=== PATIENT | male | born 1975 | race Caucasian/White ===

== ENCOUNTER 2024-07-27 08:05 | Inpatient (IN) ==
[2024-07-27] MEDS: KETOROLAC TROMETHAMINE 15 MG/ML VIAL IV STA (08:28)
--- NOTE | 2024-07-27 08:28 | Emergency Department Note ---
ED Provider Note History of Present Illness Chief Complaint: GI Assessment Stated Complaint: INTESTINAL BLOCKAGE Time Seen by Provider: 07/27/24 08:14 Source: patient Mode of arrival: ambulatory Limitations: no limitations This patient is a 49-year-old male who presents to the emergency department for evaluation of abdominal pain. Patient reports that he has been having some lower abdominal pain and constipation over the past 3 days. He states he has tried laxatives and stool softeners without relief. He reports the pain is across his lower abdomen. Nothing makes the pain better or worse. He has had some nausea this morning, denies vomiting. No fevers or urinary symptoms. Patient denies any history of similar symptoms. He states he is generally healthy. Home Medications Medication Instructions Recorded Confirmed Type multivitamin 1 tab PO QAM 04/06/22 11/01/23 History omeprazole 20 mg capsule,delayed 20 mg PO DAILY #90 caps 12/18/22 11/01/23 Rx release creatine monohydrate ea PO 11/29/23 11/29/23 History omega-3 fatty acids-fish oil 300 cap PO 11/29/23 11/29/23 History mg-500 mg capsule (Fish Oil) Allergies Allergy/AdvReac Type Severity Reaction Status Date / Time No Known Drug Allergies Allergy Verified 11/29/23 10:12 Past Med/Surg History Problem List (Updated 07/27/24 @ 15:33 by Margy Murrieta PA-C) Cecal volvulus (Acute) Colon cancer screening Medical History History of COVID-27 Feb 2021 > not hospitalized > mild Surgical History History of colonoscopy 05/02 History of tooth extraction S/P left knee surgery 2004 Family History Grandfather (Paternal) Myocardial infarction Diabetes Other No family history of adverse response to anesthesia No family history of bleeding disorder Denies family history of Ovarian cancer Prostate cancer Breast cancer Colorectal cancer Social History Smoking Status: Never smoker Second Hand Exposure: No; Do You Dip or Chew Tobacco: No; Hx Alcohol Use: No Hx Substance Use: No Preferred Language: Yi Communication Ability: Effective Visual Impairment: No Limitations Hearing Ability: Normal Marine Insulator Required: No Beliefs That Will Affect Care: None marital status: Current Living Situation: Spouse Current Living Situation Comment: /mother in law current occupational status: employed current occupation: restaurant operations manager How many Children do You have: 1 Feels Safe at Home: Yes Childhood Exposure to Second-Hand Smoke: Yes Diet: regular Diet Comment: does not consume pork or red meat caffeine: No during the past year weight has: remained stable Dental Care, Regularly: No Physical Activity Frequency: 1-2 Times per Week Seatbelt Use: always Sunscreen Use: Yes Assistive Devices: Glasses Physical Exam Vital Signs Vital Signs - 24 hr 07/27/24 08:11 07/27/24 09:16 07/27/24 09:29 Temperature 36.5 C Temperature Source Oral Pulse Rate 68 45 L Pulse Rate [Apical] 55 L Pulse Rhythm Regular Pulse Rhythm [Apical] Pulse Strength Normal Pulse Strength [Apical] Respiratory Rate 18 18 Respiratory Effort / Characteristics Non-Labored Respiratory Depth Normal Respiratory Pattern Regular Blood Pressure 134/84 Blood Pressure [Left Arm] 137/79 Blood Pressure Mean 100 Blood Pressure Mean [Left Arm] 98 Blood Pressure Position [Left Arm] Pulse Oximetry 99 100 Oxygen Delivery Method Room Air Oxygen Flow Rate Sepsis Recent Fever Within 48 Hours No Sepsis New/Unexplained Change in Mental Status No Sepsis Action Taken by Nursing No Action Required 07/27/24 11:00 07/27/24 13:22 07/27/24 13:30 Temperature 36.2 C L Temperature Source Temporal Artery Scan Pulse Rate Pulse Rate [Apical] 105 H 54 L Pulse Rhythm Pulse Rhythm [Apical] Regular Regular Pulse Strength Pulse Strength [Apical] Normal Normal Respiratory Rate 20 18 15 Respiratory Effort / Characteristics Non-Labored Non-Labored Spontaneous Non-Labored Spontaneous Respiratory Depth Normal Normal Normal Respiratory Pattern Regular Regular Regular Blood Pressure Blood Pressure [Left Arm] 157/88 H 107/61 146/84 H Blood Pressure Mean Blood Pressure Mean [Left Arm] 111 76 104 Blood Pressure Position [Left Arm] Lying Semi-fowlers Semi-fowlers Pulse Oximetry 99 95 100 Oxygen Delivery Method Room Air Oxymask Oxymask Oxygen Flow Rate 12 12 Sepsis Recent Fever Within 48 Hours Sepsis New/Unexplained Change in Mental Status Sepsis Action Taken by Nursing 07/27/24 13:40 07/27/24 13:50 07/27/24 14:00 Temperature 36.4 C L Temperature Source Oral Pulse Rate Pulse Rate [Apical] 48 L 48 L 42 L Pulse Rhythm Pulse Rhythm [Apical] Regular Regular Regular Pulse Strength Pulse Strength [Apical] Normal Normal Normal Respiratory Rate 13 14 12 Respiratory Effort / Characteristics Non-Labored Spontaneous Non-Labored Spontaneous Non-Labored Spontaneous Respiratory Depth Normal Normal Normal Respiratory Pattern Regular Regular Regular Blood Pressure Blood Pressure [Left Arm] 143/79 H 134/73 146/77 H Blood Pressure Mean Blood Pressure Mean [Left Arm] 100 93 100 Blood Pressure Position [Left Arm] Semi-fowlers Semi-fowlers Semi-fowlers Pulse Oximetry 100 96 97 Oxygen Delivery Method Oxymask Nasal Cannula Nasal Cannula Oxygen Flow Rate 8 3 2 Sepsis Recent Fever Within 48 Hours Sepsis New/Unexplained Change in Mental Status Sepsis Action Taken by Nursing 07/27/24 14:10 07/27/24 14:25 07/27/24 14:40 Temperature Temperature Source Pulse Rate Pulse Rate [Apical] 86 43 L 58 L Pulse Rhythm Pulse Rhythm [Apical] Regular Regular Regular Pulse Strength Pulse Strength [Apical] Normal Normal Normal Respiratory Rate 14 13 13 Respiratory Effort / Characteristics Non-Labored Spontaneous Non-Labored Spontaneous Non-Labored Spontaneous Respiratory Depth Normal Normal Normal Respiratory Pattern Regular Regular Regular Blood Pressure Blood Pressure [Left Arm] 142/76 H 131/71 150/76 H Blood Pressure Mean Blood Pressure Mean [Left Arm] 98 91 100 Blood Pressure Position [Left Arm] Semi-fowlers Semi-fowlers Semi-fowlers Pulse Oximetry 99 99 99 Oxygen Delivery Method Nasal Cannula Nasal Cannula Nasal Cannula Oxygen Flow Rate 2 2 2 Sepsis Recent Fever Within 48 Hours Sepsis New/Unexplained Change in Mental Status Sepsis Action Taken by Nursing 07/27/24 14:55 07/27/24 15:10 Temperature Temperature Source Pulse Rate Pulse Rate [Apical] 48 L 58 L Pulse Rhythm Pulse Rhythm [Apical] Regular Regular Pulse Strength Pulse Strength [Apical] Normal Normal Respiratory Rate 12 12 Respiratory Effort / Characteristics Non-Labored Spontaneous Non-Labored Spontaneous Respiratory Depth Normal Normal Respiratory Pattern Regular Regular Blood Pressure Blood Pressure [Left Arm] 147/71 H 124/85 Blood Pressure Mean Blood Pressure Mean [Left Arm] 96 98 Blood Pressure Position [Left Arm] Semi-fowlers Semi-fowlers Pulse Oximetry 98 99 Oxygen Delivery Method Nasal Cannula Nasal Cannula Oxygen Flow Rate 2 2 Sepsis Recent Fever Within 48 Hours Sepsis New/Unexplained Change in Mental Status Sepsis Action Taken by Nursing VITALS: Vitals are noted on the nurse's note and reviewed by myself. GENERAL: This is a 49-year-old male, in no acute distress, well-developed well- nourished. SKIN: The skin was without rashes. EYES: Pupils equal round and reactive to light and accommodation. No scleral icterus. MOUTH: Mucous membranes moist. HEART: Regular rate and rhythm without murmurs gallops or rubs. LUNGS: Clear to auscultation bilaterally without wheezes, rales or rhonchi. ABDOMEN: Positive bowel sounds x 4. Soft, tenderness across lower abdomen. No guarding or rebound tenderness. NEURO: Patient was alert and oriented to person place and time. Course Administered Medications Discontinued Medications Fentanyl Citrate (Fentanyl Citrate Pf 100 Mcg/2 Ml Vial) 25 mcg IV Q5M PRN PRN Reason: PACU Use Only-Pain Stop: 07/27/24 19:38 Last Admin: 07/27/24 14:45 Dose: 25 mcg Documented By: Admin: 07/27/24 14:40 Dose: 25 mcg Documented By: Admin: 07/27/24 13:50 Dose: 25 mcg Documented By: Admin: 07/27/24 13:45 Dose: 25 mcg Documented By: SED Sodium Chloride (Nss) 1,000 mls @ 999 mls/hr IV .Q1H1M ONE Stop: 07/27/24 10:59 Last Infusion: 07/27/24 11:20 Dose: Infused Documented By: Admin: 07/27/24 10:06 Dose: 999 mls/hr Documented By: CHASITY Cefoxitin Sodium 2,000 mg/ (Dextrose) 50 mls @ 100 mls/hr IV ONCE ONE; Protocol Stop: 07/27/24 14:55 Last Admin: 07/27/24 12:53 Dose: 100 mls/hr Documented By: REINALDO Ioversol (Optiray 320 100ml) 94 ml IV ONCE ONE Stop: 07/27/24 09:34 Last Admin: 07/27/24 09:33 Dose: 94 ml Documented By: PARTH Ketorolac Tromethamine (Ketorolac Tromethamine 15 Mg/Ml Vial) 15 mg IV NOW STA Stop: 07/27/24 08:18 Last Admin: 07/27/24 08:28 Dose: 15 mg Documented By: ALDO Morphine Sulfate (Morphine Sulfate 4 Mg/Ml 1 Ml Carp\Vial) 4 mg IV NOW STA Stop: 07/27/24 10:00 Last Admin: 07/27/24 10:06 Dose: 4 mg Documented By: CHASITY Ondansetron HCl (Ondansetron Inj 2 Mg/Ml 2 Ml Vial) 4 mg IV NOW STA Stop: 07/27/24 10:00 Last Admin: 07/27/24 10:06 Dose: 4 mg Documented By: CHASITY Medical Decision Making Differential Diagnosis Appendicitis, testicular torsion, infections, diverticulitis, UTI, obstruction, mesenteric ischemia, aortic pathology, inflammatory bowel disease, renal colic, PUD, pancreatitis, biliary pathology, hernia, volvulus, constipation, as well as other pathologies. Laboratory Data Attestation: I reviewed the patient's lab results. 07/27/24 08:31 07/27/24 08:31 Lab Results 07/27/24 07/27/24 Range/Units 08:31 10:21 WBC 5.31 (4.8-10.8) K/ul RBC 4.60 L (4.70-6.10) M/uL Hgb 14.4 (14.0-18.0) g/dl Hct 43.1 (42.0-52.0) % MCV 93.7 (80.0-100.0) fL MCH 31.3 (25.0-34.0) pg MCHC 33.4 (32.0-36.0) g/dL RDW Std Deviation 44.6 (36.4-46.3) fL RDW Coeff of Sandie 12.9 (11.5-14.5) % Plt Count 203 (130-400) K/uL MPV 10.5 (9.4-12.4) fL Immature Gran % (Auto) 0.4 % Neut % (Auto) 55.0 % Lymph % (Auto) 36.0 % [place] % (Auto) 7.3 % Eos % (Auto) 1.1 % Baso % (Auto) 0.2 % Neut # (Auto) 2.92 (1.40-6.50) K/uL Lymph # (Auto) 1.91 (1.20-3.40) K/uL [place] # (Auto) 0.39 (0.11-0.59) K/uL Eos # (Auto) 0.06 (0.00-0.50) K/uL Baso # (Auto) 0.01 (0.00-0.20) K/uL Immature Gran # (Auto) 0.02 (0.01-0.20) K/uL Sodium 138 (136-145) mmol/L Potassium 4.3 (3.5-5.1) mmol/L Chloride 104 (98-107) mmol/L Carbon Dioxide 28 (21-32) mmol/L Anion Gap 6 (3-11) BUN 19 (6-23) mg/dl Creatinine 1.51 H (0.6-1.4) mg/dl Est Cr Clr Drug Dosing 64.2 ml/min eGFR 55.92 BUN/Creatinine Ratio 12.6 (10-20) Glucose 109 H (70-99(Fasting)) mg/dl Lactate 0.7 (0.4-2.0) mmol/L Calcium 10.4 H (8.6-10.3) mg/dl Total Bilirubin 1.0 (0.2-1.0) mg/dl AST 19 (13-39) U/L ALT 14 (7-52) U/L Alkaline Phosphatase 54 (34-104) U/L Total Protein 7.6 (6.0-8.3) gm/dl Albumin 4.3 (3.4-5.0) gm/dl Globulin 3.3 (2.5-4.0) gm/dl Albumin/Globulin Ratio 1.3 (0.9-2) Lipase 23 (11-82) U/L Imaging Data Attestation: I personally reviewed and interpreted this imaging study as follows: Radiologist's Impression: Abdomen/Pelvis CT 07/27/24 08:17 CT OF THE ABDOMEN AND PELVIS WITH CONTRAST CLINICAL HISTORY: Lower abdominal pain and constipation. COMPARISON STUDY: None. TECHNIQUE: Following IV administration of 94 mL of Optiray, axial images of the abdomen and pelvis were obtained from the lung bases to the proximal femurs. Images were reviewed in the axial, sagittal, and coronal planes. IV contrast was administered without complication. Automated exposure control was utilized for the study. A dose lowering technique was utilized adhering to the principles of ALARA. CT DOSE: 827.08 mGy.cm FINDINGS: Lung bases are unremarkable. There is no pneumatosis, free air or portal venous gas. A subcentimeter hypodense right hepatic lobe lesion is suggestive of a cyst. There is no biliary or pancreatic ductal dilatation. Spleen, adrenal glands, kidneys and pancreas are normal. There is no hydronephrosis. The cecum is located within the central abdomen. There is moderate to marked cecal distention. There is a large amount stool within the cecum. Mild swirling of the mesentery is noted. There is mild stranding within the mesentery. No bowel wall thickening is identified. There are no fluid collections. Major vasculature is patent. There is no lymphadenopathy. The appendix is normal. IMPRESSION: Findings suggestive of cecal volvulus. Abnormally positioned cecum with moderate to marked cecal distention. Large amount stool within the cecum. Mild swirling of the mesentery with mild mesenteric stranding. Surgical consultation is recommended. ACT 112: Negative or not required by law. Electronically signed by: Win Estrada M.D. 07/27/2024 9:50 AM MDM Narrative Continuous school bus monitor: Order was placed for continuous school bus monitor. Patient was placed on the school bus monitor. Patient was noted to be in sinus bradycardia at an initial rate of 50 bpm. This patient is a 49-year-old male who presents to the emergency department for evaluation of lower abdominal pain and constipation over the past 3 days. Labs with no leukocytosis, lactate was not elevated. No concerning electrolyte abnormalities. Mild BREANN noted, possibly secondary to dehydration as patient has not been eating or drinking much. CT performed and does show evidence of cecal volvulus with marked cecal distention. Case discussed with the general surgeon who will take the patient for operative management. He was treated with IV pain medications, Zofran and fluids in the emergency department. Impression Cecal volvulus Discharge Plan Visit Data Chief Complaint: GI Assessment Stated Complaint: INTESTINAL BLOCKAGE ED Provider: Abhi James ED Midlevel Provider: Margy Murrieta Discharge Problem: Cecal volvulus Discharge Instructions Interventions: ED Discharge Assessment Last Done: 07/27/24 11:24 Forms Stand Alone Forms: My [facility] [employer] Prescriptions Prescriptions: No Action omeprazole 20 mg capsule,delayed release(DR/EC) 20 mg PO DAILY Qty: 90 2RF Rx Instructions: 1 cap po 30min prior to first meal Fish Oil 300-500 mg capsule PO creatine monohydrate Powder PO multivitamin Tablet 1 tab PO QAM Referrals Referrals: Dennis Nuñez, DO [Primary Care Provider] -
[2024-07-27 08:55] LABS: Basophils # (auto) 0.01 K/uL (0.00-0.20); Basophils % (auto) 0.2 %; Eosinophils # (auto) 0.06 K/uL (0.00-0.50); Eosinophils % (auto) 1.1 %; Hematocrit (blood only) 43.1 % (42.0-52.0); Hemoglobin 14.4 g/dl (14.0-18.0); Immature Granulocytes # (auto) 0.02 K/uL (0.01-0.20); Immature Granulocytes % (auto) 0.4 %; Lymphocytes # (auto) 1.91 K/uL (1.20-3.40); Mean Corpuscular Hemoglobin 31.3 pg (25.0-34.0); Mean Corpuscular Hgb Conc 33.4 g/dL (32.0-36.0); Mean Corpuscular Volume 93.7 fL (80.0-100.0); Mean Platelet Volume 10.5 fL (9.4-12.4); Monocytes # (auto) 0.39 K/uL (0.11-0.59); Monocytes % (auto) 7.3 %; Neutrophils # (auto) 2.92 K/uL (1.40-6.50); Platelet Count 203 K/uL (130-400); RDW Coefficient of Variation 12.9 % (11.5-14.5); RDW Standard Deviation 44.6 fL (36.4-46.3); White Blood Count 5.31 K/ul (4.8-10.8)
[2024-07-27 09:17] LABS: Albumin Globulin Ratio 1.3 (0.9-2); Albumin Level 4.3 gm/dl (3.4-5.0); BUN Creatinine Ratio 12.6 (10-20); Calcium 10.4 mg/dl (8.6-10.3); Creatinine Clr Calc Pharmacy 64.2 ml/min; Globulin 3.3 gm/dl (2.5-4.0); Potassium 4.3 mmol/L (3.5-5.1); Total Protein 7.6 gm/dl (6.0-8.3)
[2024-07-27] MEDS: OPTIRAY 320 100ml IV ONE (09:33)
--- NOTE | 2024-07-27 09:52 | CT Scan Report ---
CT OF THE ABDOMEN AND PELVIS WITH CONTRAST CLINICAL HISTORY: Lower abdominal pain and constipation. COMPARISON STUDY: None. TECHNIQUE: Following IV administration of 94 mL of Optiray, axial images of the abdomen and pelvis we re obtained from the lung bases to the proximal femurs. Images were reviewed in the axial, sagittal, and coronal planes. IV contrast was administered without complication. Automated exposure control wa s utilized for the study. A dose lowering technique was utilized adhering to the principles of ALARA . CT DOSE: 827.08 mGy.cm FINDINGS: Lung bases are unremarkable. There is no pneumatosis, free air or portal venous gas. A subc entimeter hypodense right hepatic lobe lesion is suggestive of a cyst. There is no biliary or pancrea tic ductal dilatation. Spleen, adrenal glands, kidneys and pancreas are normal. There is no hydroneph rosis. The cecum is located within the central abdomen. There is moderate to marked cecal distention. There is a large amount stool within the cecum. Mild swirling of the mesentery is noted. There is mi ld stranding within the mesentery. No bowel wall thickening is identified. There are no fluid collect ions. Major vasculature is patent. There is no lymphadenopathy. The appendix is normal. IMPRESSION: Findings suggestive of cecal volvulus. Abnormally positioned cecum with moderate to samira ed cecal distention. Large amount stool within the cecum. Mild swirling of the mesentery with mild me senteric stranding. Surgical consultation is recommended. ACT 112: Negative or not required by law. Electronically signed by: Win Estrada M.D. 07/27/2024 9:50 AM
[2024-07-27] MEDS: MoRPHine SULFATE 4 MG/ML 1 ML CARP\\VIAL IV STA (10:06)
[2024-07-27] MEDS: SODIUM CHLORIDE 0.9% 1,000 ML IV ONE (10:06)
[2024-07-27] MEDS: ONDANSETRON INJ 2 MG/ML 2 ML VIAL IV STA (10:06)
--- NOTE | 2024-07-27 10:31 | Anesthesiology Consultation ---
Date of Service July 27, 2024 Assessment & Plan Chart Review Chart Review: Acceptable Risk for Surgery and Patient NOT seen in Pre Admission Testing Consults Requested none ASA [id number] Proposed Anesthesia Anesthesia Type: General History Surgery Operation Date: 07/27/24 11:00 Proposed Procedures p Exploratory Laparotomy, Possible Bowel Resection - Irving Nuñez MD Height/Weight Height: 6 ft Weight: 88.7 kg Allergies Allergy/AdvReac Type Severity Reaction Status Date / Time No Known Drug Allergies Allergy Verified 11/29/23 10:12 Medications Home Medications Medication Instructions Recorded Confirmed Last Taken multivitamin 1 tab PO QAM 04/06/22 11/01/23 04/09/22 omeprazole 20 mg capsule,delayed 20 mg PO DAILY #90 caps 12/18/22 11/01/23 Unknown release creatine monohydrate ea PO 11/29/23 11/29/23 Unknown omega-3 fatty acids-fish oil 300 cap PO 11/29/23 11/29/23 Unknown mg-500 mg capsule (Fish Oil) Active Medications Generic Name Dose Route Start Last Admin Trade Name Freq PRN Reason Stop Dose Admin Sodium Chloride 1,000 mls @ 999 mls/hr 07/27/24 09:59 07/27/24 10:06 Nss IV 07/27/24 10:59 999 mls/hr .Q1H1M ONE Administration Past Medical History Medical History History of COVID-27 Feb 2021 > not hospitalized > mild GERD Exercise / Class Metabolic Activity II 4-5 Yardwork/Stairs/Walk up hill Past Family History Family History Grandfather (Paternal) Myocardial infarction Diabetes Other No family history of adverse response to anesthesia No family history of bleeding disorder Denies family history of Ovarian cancer Prostate cancer Breast cancer Colorectal cancer Past Surgical History Surgical History History of colonoscopy 05/02 History of tooth extraction S/P left knee surgery 2004 Past Anesthesia History No Hx of Anesthesia Complications and No Family Hx of Anesthesia Complications History of PONV No Hx of PONV and No Hx of Motion Sickness Social History Smoking Status: Never smoker Do You Dip or Chew Tobacco: No Hx Alcohol Use: No Hx Substance Use: No substance use type: does not use Physical Exam Vital Signs Last Vital Signs Temp 36.5 C 07/27/24 08:11 Pulse 45 L 07/27/24 09:29 Resp 18 07/27/24 09:16 BP 137/79 07/27/24 09:16 Pulse Ox 100 07/27/24 09:16 O2 Del Method Room Air 07/27/24 08:11 Testing Laboratory Results 07/27/24 08:31 07/27/24 08:31
[2024-07-27] MEDS ORDERED: LIDOCAINE 2% 2 ML VIAL/AMP(20MG/ML) INFIL ONE (10:54)
[2024-07-27] MEDS ORDERED: ONDANSETRON INJ 2 MG/ML 2 ML VIAL ONE (10:54)
[2024-07-27] MEDS ORDERED: PROPOFOL IV EMULSION 10 MG/ML 20 ML VIAL IV ONE (10:54)
[2024-07-27] MEDS ORDERED: DEXAMETHASONE SOD INJ 4 MG/ML VIAL ONE (10:54)
[2024-07-27] MEDS ORDERED: SUCCINYLCHOLINE CHLORIDE 20 MG/ML 10 ML VIAL IV ONE (10:55)
[2024-07-27] MEDS ORDERED: ROCURONIUM BROMIDE 10 MG/ML 5 ML VIAL IV ONE (10:55)
[2024-07-27] MEDS ORDERED: MIDAZOLAM HCL 1 MG/ML 2ML VIAL ONE (10:55)
[2024-07-27] MEDS ORDERED: fentaNYL citrate PF 100 MCG/2 ML VIAL ONE (10:55)
--- NOTE | 2024-07-27 11:15 | History & Physical Report ---
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 We discussed the risks and benefits of exploratory laparotomy with reduction of the volvulus and right colon resection reanastomosis. All his questions were answered and he is agreeable to proceed. Consent has been obtained. Will schedule this at the earliest convenience. History of Present Illness Primary Care Provider: Dennis Nuñez DO 49-year-old gentleman presents with a 3-day history of severe pain in his abdomen. He has been constipated. He denies fevers and chills. He has had some nausea. He denies other complaints. He has never had surgery in the past on his abdomen. CT scan demonstrates cecal volvulus. Allergies Allergy/AdvReac Type Severity Reaction Status Date / Time No Known Drug Allergies Allergy Verified 11/29/23 10:12 Home Medications Medication Instructions Recorded Confirmed Type multivitamin 1 tab PO QAM 04/06/22 11/01/23 History omeprazole 20 mg capsule,delayed 20 mg PO DAILY #90 caps 12/18/22 11/01/23 Rx release creatine monohydrate ea PO 11/29/23 11/29/23 History omega-3 fatty acids-fish oil 300 cap PO 11/29/23 11/29/23 History mg-500 mg capsule (Fish Oil) Past Med/Surg History Problem List (Updated 07/27/24 @ 11:16 by Irving Nuñez MD) Cecal volvulus Colon cancer screening Medical History History of COVID-19 Feb 2021 > not hospitalized > mild Surgical History History of colonoscopy 05/02 History of tooth extraction S/P left knee surgery 2004 Family History Grandfather (Paternal) Myocardial infarction Diabetes Other No family history of adverse response to anesthesia No family history of bleeding disorder Denies family history of Ovarian cancer Prostate cancer Breast cancer Colorectal cancer Social History Smoking Status: Never smoker Second Hand Exposure: No; Do You Dip or Chew Tobacco: No; Hx Alcohol Use: No Hx Substance Use: No Preferred Language: [place] Islander Communication Ability: Effective Visual Impairment: No Limitations Hearing Ability: Normal Floral Manager Required: No Beliefs That Will Affect Care: None marital status: Current Living Situation: Spouse Current Living Situation Comment: /mother in law current occupational status: employed current occupation: credit operations processor How many Children do You have: 1 Feels Safe at Home: Yes Childhood Exposure to Second-Hand Smoke: Yes Diet: regular Diet Comment: does not consume pork or red meat caffeine: No during the past year weight has: remained stable Dental Care, Regularly: No Physical Activity Frequency: 1-2 Times per Week Seatbelt Use: always Sunscreen Use: Yes Assistive Devices: Glasses Review of Systems Review of Systems: All systems reviewed & are unremarkable except as noted in HPI & below Physical Exam Constitutional: WD/WN, vitals as above Eyes: PERRL, conjunctivae normal, anicteric sclerae Neck: trachea midline, no thyromegaly Respiratory: normal respiratory effort; no respiratory distress and no labored breathing Cardiovascular: Rate/Rhythm: regular rate and regular rhythm Gastrointestinal (Abdomen): Inspection/Auscultation: abdomen normal to inspection and + abdomen distended Percussion/Palpation: + abdomen tender ( Diffusely) and abdomen soft; no guarding and abdomen not rigid Skin: no rashes, warm and dry Psychiatric: A+Ox3, euthymic affect Results & Data Results & Data Vital Signs (Past 12 Hours) Vital Signs Temp Pulse Pulse Resp BP BP Pulse Ox 07/27/24 09:29 45 L 07/27/24 09:16 55 L 18 137/79 100 07/27/24 08:11 36.5 C 68 18 134/84 99 O2 Del Method 07/27/24 09:29 07/27/24 09:16 07/27/24 08:11 Room Air Laboratory Results 07/27/24 07/27/24 Range/Units 10:21 08:31 WBC 5.31 (4.8-10.8) K/ul RBC 4.60 L (4.70-6.10) M/uL Hgb 14.4 (14.0-18.0) g/dl Hct 43.1 (42.0-52.0) % MCV 93.7 (80.0-100.0) fL MCH 31.3 (25.0-34.0) pg MCHC 33.4 (32.0-36.0) g/dL RDW Std Deviation 44.6 (36.4-46.3) fL RDW Coeff of Sandie 12.9 (11.5-14.5) % Plt Count 203 (130-400) K/uL MPV 10.5 (9.4-12.4) fL Immature Gran % (Auto) 0.4 % Neut % (Auto) 55.0 % Lymph % (Auto) 36.0 % [place] % (Auto) 7.3 % Eos % (Auto) 1.1 % Baso % (Auto) 0.2 % Neut # (Auto) 2.92 (1.40-6.50) K/uL Lymph # (Auto) 1.91 (1.20-3.40) K/uL [place] # (Auto) 0.39 (0.11-0.59) K/uL Eos # (Auto) 0.06 (0.00-0.50) K/uL Baso # (Auto) 0.01 (0.00-0.20) K/uL Immature Gran # (Auto) 0.02 (0.01-0.20) K/uL Sodium 138 (136-145) mmol/L Potassium 4.3 (3.5-5.1) mmol/L Chloride 104 (98-107) mmol/L Carbon Dioxide 28 (21-32) mmol/L Anion Gap 6 (3-11) BUN 19 (6-23) mg/dl Creatinine 1.51 H (0.6-1.4) mg/dl Est Cr Clr Drug Dosing 64.2 ml/min eGFR 55.92 BUN/Creatinine Ratio 12.6 (10-20) Glucose 109 H (70-99(Fasting)) mg/dl Lactate 0.7 (0.4-2.0) mmol/L Calcium 10.4 H (8.6-10.3) mg/dl Total Bilirubin 1.0 (0.2-1.0) mg/dl AST 19 (13-39) U/L ALT 14 (7-52) U/L Alkaline Phosphatase 54 (34-104) U/L Total Protein 7.6 (6.0-8.3) gm/dl Albumin 4.3 (3.4-5.0) gm/dl Globulin 3.3 (2.5-4.0) gm/dl Albumin/Globulin Ratio 1.3 (0.9-2) Lipase 23 (11-82) U/L Diagnostic Findings CT OF THE ABDOMEN AND PELVIS WITH CONTRAST CLINICAL HISTORY: Lower abdominal pain and constipation. COMPARISON STUDY: None. TECHNIQUE: Following IV administration of 94 mL of Optiray, axial images of the abdomen and pelvis were obtained from the lung bases to the proximal femurs. Images were reviewed in the axial, sagittal, and coronal planes. IV contrast was administered without complication. Automated exposure control was utilized for the study. A dose lowering technique was utilized adhering to the principles of ALARA. CT DOSE: 827.08 mGy.cm FINDINGS: Lung bases are unremarkable. There is no pneumatosis, free air or portal venous gas. A subcentimeter hypodense right hepatic lobe lesion is santana ggestive of a cyst. There is no biliary or pancreatic ductal dilatation. Spleen, adrenal glands, kidneys and pancreas are normal. There is no hydronephrosis. The cecum is located within the central abdomen. There is moderate to marked cecal distention. There is a large amount stool within the cecum. Mild swirling of the mesentery is noted. There is mild stranding within the mesentery. No bowel wall thickening is identified. There are no fluid collections. Major vasculature is patent. There is no lymphadenopathy. The appendix is normal. IMPRESSION: Findings suggestive of cecal volvulus. Abnormally positioned cecum with moderate to marked cecal distention. Large amount stool within the cecum. Mild swirling of the mesentery with mild mesenteric stranding. Surgical consultation is recommended. ACT 112: Negative or not required by law. Electronically signed by: Win Estrada M.D. 07/27/2024 9:50 AM
[2024-07-27] MEDS ORDERED: NALOXONE HCL 0.4 MG/1 ML VIAL/CARP IV PRN (11:38)
[2024-07-27] MEDS ORDERED: ePHEDrine sulfate 50 MG/ML AMP IV PRN (11:38)
[2024-07-27] MEDS ORDERED: ATROPINE SULFATE 0.1 MG/ML 10ML SYR IV PRN (11:38)
[2024-07-27] MEDS ORDERED: HYDROmorphone INJ 1 MG/ML SYRINGE IV PRN (11:38)
[2024-07-27] MEDS ORDERED: ONDANSETRON INJ 2 MG/ML 2 ML VIAL IV PRN (11:38)
[2024-07-27] MEDS ORDERED: PROMETHAZINE HCL 6.25 MG in SODIUM CHLORIDE 0.9% 50 ML IV PRN (11:38)
[2024-07-27] MEDS ORDERED: FLUMAZENIL 0.1 MG/1 ML 10 ML VIAL IV PRN (11:38)
[2024-07-27] MEDS ORDERED: cefOXitin SOD 1,000 MG VIAL ONE (11:54)
[2024-07-27] MEDS ORDERED: HYDROmorphone INJ 1 MG/ML SYRINGE ONE ×2 (12:07→12:17)
[2024-07-27] MEDS: cefOXitin 2,000 MG in DEXTROSE 5 % MINI-B 50 ML IV ONE (12:53)
[2024-07-27] MEDS ORDERED: SUGAMMADEX SODIUM 200 MG/2 ML VIAL IV ONE (12:53)
--- NOTE | 2024-07-27 13:12 | Post Operative Brief Note ---
Immediate Post Op Note Date of Surgery July 27, 2024 Pre & Post Diagnosis Operation Date: 07/27/24 11:00 Preop: Cecal volvulus Postop: Same I identified the patient and participated in the time-out.: Yes Procedure Operation Date: 07/27/24 11:00 exploratory laparotomy right hemicolectomy Surgeon Irving Nuñez MD [place] none Estimated Blood Loss 10 Findings Consistent with Post-Op Diagnosis cecal volvulus with extremely distended right colon up past the hepatic flexure Drains Verde Catheter
--- NOTE | 2024-07-27 13:16 | Operative Report ---
Post Operative Report Pre & Post Diagnosis Operation Date: 07/27/24 11:00 Pre-Op diagnosis: Cecal volvulus Postop: Same I identified the patient and participated in the time-out.: Yes Procedure Operation Date: 07/27/24 11:00 exploratory laparotomy, right hemicolectomy, reanastomosis Surgeon Irving Nuñez MD Contracts Administrator none Estimated Blood Loss 10 Findings Consistent with Post-Op Diagnosis the right colon was volvulized, twisted on itself 2 times. No perforation. No ischemia but the right colon was severely distended and on a very long thin mesentery Specimens right colon including terminal ileum and appendix/cecum Drains none Anesthesia Type General Complications none Description of Procedure patient was taken to the operating room, placed supine on the operating table. Timeouts performed, perioperative antibiotics were administered, SCD boots were placed. After adequate anesthesia and analgesia was obtained, the area was prepped and draped in the normal sterile fashion. A Verde catheter was placed prior to prepping and draping the patient. A midline incision was made with a 10 blade scalpel and carried into the subcutaneous tissue. The abdomen was entered through the umbilicus, and the incision was opened to its fullest extent with electrocautery. We began to explore the abdominal cavity. The colon appeared severely distended but was tethered down near the midline. I extended the incision slightly, and was able to detorsed the volvulus. It had volvulized and rotated at least twice on itself causing a tight obstruction. The right colon was incredibly distended and dilated but was not ischemic. There is no perforation. The right colon was on a very thin long mesentery which predisposed it to twist. I mobilized the right colon up past the hepatic flexure to just prior to the middle colic artery. A site was selected on the terminal ileum and the bowel was transected in this location with a LYUDMILA stapler. The mesentery of the right colon was then taken down with the LigaSure device. The ileocolic and right colic arteries were clamped and tied with 3-0 silk suture. The colon was then transected in the mid proximal transverse colon with the LYUDMILA stapler. The specimen was sent off the field for specimen. A [id number], functional end-to-end anastomosis between the terminal ileum and the transverse colon was then created using the LYUDMILA stapler. The common channel was closed with a TA stapler. The resulting mesenteric defect was reapproximated with 2 oh-0 Vicryl suture. Attention was turned to hemostasis at this point which was excellent. The wound was copiously irrigated and suctioned free. Gloves were changed at this juncture. The bowel was then placed back into the abdominal cavity. The fascia was closed with a running #1 PDS. The skin was closed with surgical clips. Dressings were applied. He tolerated the procedure without complication was transferred in stable condition to the PACU. All instrument, needle, and sponge counts were correct at the end of the case. I attest to the content of the Intraoperative Record and any orders documented therein. Any exceptions are noted below.
[2024-07-27] MEDS: fentaNYL citrate PF 100 MCG/2 ML VIAL IV PRN (13:45)
--- NOTE | 2024-07-27 14:28 | Anesthesiology Progress Note ---
Date of Service July 27, 2024 Anesthesia Post Procedure Vital Signs Vital Signs: Temp Pulse Pulse Resp BP BP Pulse Ox 07/27/24 14:10 86 14 142/76 H 99 07/27/24 14:00 36.4 C L 42 L 12 146/77 H 97 07/27/24 13:50 48 L 14 134/73 96 07/27/24 13:40 48 L 13 143/79 H 100 07/27/24 13:30 54 L 15 146/84 H 100 07/27/24 13:22 36.2 C L 105 H 18 107/61 95 07/27/24 11:00 20 157/88 H 99 07/27/24 09:29 45 L 07/27/24 09:16 55 L 18 137/79 100 07/27/24 08:11 36.5 C 68 18 134/84 99 O2 Del Method O2 Flow Rate 07/27/24 14:10 Nasal Cannula 2 07/27/24 14:00 Nasal Cannula 2 07/27/24 13:50 Nasal Cannula 3 07/27/24 13:40 Oxymask 8 07/27/24 13:30 Oxymask 12 07/27/24 13:22 Oxymask 12 07/27/24 11:00 Room Air 07/27/24 09:29 07/27/24 09:16 07/27/24 08:11 Room Air Pain Intensity Lower Abdomen: Pain Intensity: 7 Abdomen: Pain Intensity: 4 Transfer of Care Handoff Completed per policy Notes Mental Status: alert / awake / arousable Patient Amnestic to Procedure: Yes Nausea / Vomiting: adequately controlled Pain: adequately controlled Airway Patency, RR, SpO2: stable & adequate BP & HR: stable & adequate Hydration State: stable & adequate Anesthetic Complications: no major complications apparent
[2024-07-27] MEDS ORDERED: diphenhydrAMINE Capsule 25 MG CAP PO PRN (15:38)
[2024-07-27] MEDS ORDERED: oxyCODONE/ACETAMINOPHEN 5mg/325mg TAB PO PRN ×2 (15:38)
[2024-07-27] MEDS ORDERED: PROMETHAZINE 12.5 MG/50.5 ML BAG IV PRN (15:38)
[2024-07-27] MEDS: KETOROLAC 30 MG/ML VIAL IV PRN (20:44)
[2024-07-28] MEDS: MoRPHine SULFATE 2 MG/ML CARP IV PRN (03:02)
[2024-07-28] MEDS: ONDANSETRON INJ 2 MG/ML 2 ML VIAL IV PRN (03:04)
[2024-07-28 06:35] LABS: Basophils # (auto) 0.02 K/uL (0.00-0.20); Basophils % (auto) 0.2 %; Eosinophils # (auto) 0.01 K/uL (0.00-0.50); Eosinophils % (auto) 0.1 %; Hematocrit (blood only) 39.1 % (42.0-52.0); Hemoglobin 13.2 g/dl (14.0-18.0); Immature Granulocytes # (auto) 0.04 K/uL (0.01-0.20); Immature Granulocytes % (auto) 0.4 %; Lymphocytes # (auto) 1.54 K/uL (1.20-3.40); Lymphocytes % (auto) 14.7 %; Mean Corpuscular Hemoglobin 30.9 pg (25.0-34.0); Mean Corpuscular Hgb Conc 33.8 g/dL (32.0-36.0); Mean Corpuscular Volume 91.6 fL (80.0-100.0); Mean Platelet Volume 10.9 fL (9.4-12.4); Monocytes # (auto) 0.78 K/uL (0.11-0.59); Monocytes % (auto) 7.4 %; Neutrophils # (auto) 8.11 K/uL (1.40-6.50); Neutrophils % (auto) 77.2 %; Platelet Count 185 K/uL (130-400); RDW Standard Deviation 43.7 fL (36.4-46.3); Red Blood Count 4.27 M/uL (4.70-6.10)
[2024-07-28 07:00] LABS: BUN Creatinine Ratio 11.3 (10-20); Calcium 9.6 mg/dl (8.6-10.3); Creatinine Clr Calc Pharmacy 64.7 ml/min
[2024-07-28] MEDS ORDERED: HYDROmorphone INJ 1 MG/ML SYRINGE IV PRN (09:10)
[2024-07-28] MEDS: HYDROmorphone INJ 0.5 MG/0.5 ML SYR IV PRN (09:19)
[2024-07-28] MEDS: ENOXAPARIN INJ 40 MG/0.4 ML SYR SQ SCH (09:29)
[2024-07-28] MEDS: KETOROLAC 30 MG/ML VIAL IV SCH (10:00)
--- NOTE | 2024-07-28 11:29 | Surgery Progress Note ---
Date of Service July 28, 2024 Assessment & Plan (1) Cecal volvulus: Plan POD # 1 s/p ex lap right hemicolectomy with primary anastomosis avss postop pain moderate, somewhat controlled + flatus no n,v creatinine 1.5 (stable) Plan: Continue clear liquids IV NSS at 80 cc/hr Continue pain management: Changed IV morphine prn to Dilaudid prn, will schedule Toradol , advised can try Percocet as well Continue antiemetics as needed encouraged incentive spirometry and ambulation Lovenox and SCDs repeat am labs, monitor creatinine abdominal binder with ambulation Dr. Nuñez has seen and examined pt, agrees with above. Admission and Anticipated Discharge Date Admission Date: July 27, 2024 Subjective feeling okay midline incisional pain 510, 710 last night, morphine not really helping urinating without difficulty some gas and liquid stool this am no chest pain, shortness of breath no n,v tolerating some clear liquids Physical Exam Constitutional: WD/WN, vitals as above cooperative and comfortable; no acute distress and not ill appearing Respiratory: normal respiratory effort, lungs clear to auscultation Cardiovascular: RRR, no murmur, no edema Gastrointestinal (Abdomen): Inspection/Auscultation: abdomen normal to inspection and + abdominal surgical incision (dressing c/d/i ); abdomen not distended Percussion/Palpation: + abdomen tender (at midline incision) and abdomen soft; no guarding, abdomen not rigid and abdomen not firm Skin: no rashes, warm and dry Psychiatric: A+Ox3, euthymic affect Results & Data Vital Signs (Past 12 Hours) Vital Signs Temp Pulse Resp BP Pulse Ox O2 Del Method 07/28/24 11:22 36.5 C 63 16 127/72 96 Room Air 07/28/24 07:47 36.5 C 73 16 131/80 97 Room Air 07/28/24 04:00 37.1 C 71 16 128/83 95 Room Air 07/28/24 00:00 37.1 C 67 16 131/84 96 Room Air Laboratory Results 07/28/24 Range/Units 05:55 WBC 10.50 (4.8-10.8) K/ul RBC 4.27 L (4.70-6.10) M/uL Hgb 13.2 L (14.0-18.0) g/dl Hct 39.1 L (42.0-52.0) % MCV 91.6 (80.0-100.0) fL MCH 30.9 (25.0-34.0) pg MCHC 33.8 (32.0-36.0) g/dL RDW Std Deviation 43.7 (36.4-46.3) fL RDW Coeff of Sandie 13.0 (11.5-14.5) % Plt Count 185 (130-400) K/uL MPV 10.9 (9.4-12.4) fL Immature Gran % (Auto) 0.4 % Neut % (Auto) 77.2 % Lymph % (Auto) 14.7 % [place] % (Auto) 7.4 % Eos % (Auto) 0.1 % Baso % (Auto) 0.2 % Neut # (Auto) 8.11 H (1.40-6.50) K/uL Lymph # (Auto) 1.54 (1.20-3.40) K/uL [place] # (Auto) 0.78 H (0.11-0.59) K/uL Eos # (Auto) 0.01 (0.00-0.50) K/uL Baso # (Auto) 0.02 (0.00-0.20) K/uL Immature Gran # (Auto) 0.04 (0.01-0.20) K/uL Sodium 135 L (136-145) mmol/L Potassium 4.0 (3.5-5.1) mmol/L Chloride 104 (98-107) mmol/L Carbon Dioxide 25 (21-32) mmol/L Anion Gap 6 (3-11) BUN 17 (6-23) mg/dl Creatinine 1.50 H (0.6-1.4) mg/dl Est Cr Clr Drug Dosing 64.7 ml/min eGFR 56.37 BUN/Creatinine Ratio 11.3 (10-20) Glucose 118 H (70-99(Fasting)) mg/dl Calcium 9.6 (8.6-10.3) mg/dl
[2024-07-28] MEDS: SODIUM CHLORIDE 0.9% 1,000 ML IV SCH (11:33)
[2024-07-28 16:51] LABS: Appearance Urine Clear (Clear); Bilirubin Urine Negative (Negative); Blood Urine Negative (Negative); Color Urine Yellow; Glucose Urine UA Negative (Negative); Ketones Urine Trace (Negative); Leukocyte Esterase Urine Negative (Negative); Nitrite Urine Negative (Negative); Protein Urine Negative (Negative); Specific Gravity Urine 1.021 (1.000-1.030); Urobilinogen Urine Negative (Negative)
[2024-07-29 06:23] LABS: Basophils # (auto) 0.01 K/uL (0.00-0.20); Basophils % (auto) 0.1 %; Eosinophils % (auto) 1.2 %; Hematocrit (blood only) 34.6 % (42.0-52.0); Hemoglobin 11.7 g/dl (14.0-18.0); Immature Granulocytes # (auto) 0.02 K/uL (0.01-0.20); Immature Granulocytes % (auto) 0.2 %; Lymphocytes # (auto) 1.35 K/uL (1.20-3.40); Lymphocytes % (auto) 16.4 %; Mean Corpuscular Hemoglobin 31.6 pg (25.0-34.0); Mean Corpuscular Hgb Conc 33.8 g/dL (32.0-36.0); Mean Corpuscular Volume 93.5 fL (80.0-100.0); Monocytes # (auto) 0.66 K/uL (0.11-0.59); Neutrophils # (auto) 6.09 K/uL (1.40-6.50); Neutrophils % (auto) 74.1 %; Platelet Count 153 K/uL (130-400); RDW Coefficient of Variation 12.8 % (11.5-14.5); RDW Standard Deviation 44.1 fL (36.4-46.3); White Blood Count 8.23 K/ul (4.8-10.8)
[2024-07-29 06:46] LABS: BUN Creatinine Ratio 11.8 (10-20); Calcium 9.6 mg/dl (8.6-10.3); Creatinine Clr Calc Pharmacy 60.2 ml/min
[2024-07-29] MEDS ORDERED: oxyCODONE HCL IR 5 MG TAB (IMMEDIATE RELEASE) PO PRN (11:17)
[2024-07-29] MEDS ORDERED: ACETAMINOPHEN 325 MG TAB PO PRN (11:17)
[2024-07-29] MEDS ORDERED: ACETAMINOPHEN 1,000 MG/100 ML VIAL IV PRN (11:17)
--- NOTE | 2024-07-29 13:56 | Surgery Progress Note ---
Date of Service July 29, 2024 Assessment & Plan (1) Cecal volvulus: Plan: POD 2 from right hemicolectomy with Dr. Nuñez. Patient progressing well. Afebrile and VSS Continue with a clear liquid diet at this time. Of note, after later in the day after my examination of this patient, nursing reported acute abdominal pain after sneezing and a bloody BM. Chemical DVT ppxbeing held and encourage the patient to hold his abdomen when he wants to sneeze or cough. He is post op day 2 and these are not abnormal findings for this time frame. Surgery will continue to follow. Ambulate aggressively F/U am labs Admission and Anticipated Discharge Date Admission Date: July 27, 2024 Subjective Patient was seen and examined this am. His pain was well controlled overnight and this am. He had no complaints. He said he was passing some gas and had no nausea. Physical Exam Constitutional: no acute distress, not ill appearing and not diaphoretic Respiratory: normal respiratory effort; no respiratory distress, no labored breathing and does not use accessory muscles Gastrointestinal (Abdomen): abdominal dressings are clean and dry Abdomen is non-distended Results & Data Vital Signs (Past 12 Hours) Vital Signs Temp Pulse Resp BP Pulse Ox O2 Del Method 07/29/24 07:42 36.8 C 66 16 133/70 97 Room Air PG Care Time/CCT Total # of Minutes Spent Total Time Spent with Patient: Total time spent is greater than 50% in coordination of care (as documented) at patient's floor/unit and/or counseling patient: Coding Level of Care Code 83956 Post Operative Follow-Up Diagnoses Cecal volvulus K56.2
[2024-07-29] MEDS: oxyCODONE HCL IR 5 MG TAB (IMMEDIATE RELEASE) PO PRN (21:22)
[2024-07-30 06:40] LABS: Basophils # (auto) 0.02 K/uL (0.00-0.20); Basophils % (auto) 0.4 %; Eosinophils # (auto) 0.18 K/uL (0.00-0.50); Eosinophils % (auto) 3.4 %; Hematocrit (blood only) 33.9 % (42.0-52.0); Hemoglobin 11.3 g/dl (14.0-18.0); Immature Granulocytes # (auto) 0.03 K/uL (0.01-0.20); Immature Granulocytes % (auto) 0.6 %; Lymphocytes # (auto) 1.29 K/uL (1.20-3.40); Lymphocytes % (auto) 24.1 %; Mean Corpuscular Hgb Conc 33.3 g/dL (32.0-36.0); Mean Corpuscular Volume 93.1 fL (80.0-100.0); Mean Platelet Volume 10.7 fL (9.4-12.4); Monocytes # (auto) 0.57 K/uL (0.11-0.59); Monocytes % (auto) 10.6 %; Neutrophils # (auto) 3.27 K/uL (1.40-6.50); Neutrophils % (auto) 60.9 %; Platelet Count 166 K/uL (130-400); RDW Coefficient of Variation 12.7 % (11.5-14.5); RDW Standard Deviation 43.4 fL (36.4-46.3); Red Blood Count 3.64 M/uL (4.70-6.10); White Blood Count 5.36 K/ul (4.8-10.8)
[2024-07-30 06:56] LABS: BUN Creatinine Ratio 10.2 (10-20); Calcium 9.7 mg/dl (8.6-10.3); Creatinine Clr Calc Pharmacy 58.4 ml/min; Potassium 3.9 mmol/L (3.5-5.1)
--- NOTE | 2024-07-30 08:54 | Surgery Progress Note ---
Date of Service July 30, 2024 Assessment & Plan (1) Cecal volvulus: Plan: POD#3 from right hemicolectomy with Dr. Nuñez. Patient progressing well. Afebrile and VSS Had some bloody BMs yesterday. Hbg stable at 11. Vitals stable. WBC 5.3. DVT prophylaxis held yesterday He is hungry for more. currently tolerating clears without nausea/vomiting Will advance to fulls today and see how he fairs Incisions c/d/i with norma, no infection Ambulate and pulmonary toilet Admission and Anticipated Discharge Date Admission Date: July 27, 2024 Supervising Physician Co-Signing Physician Notes Pt is POD 3 and continues to progress very well. Tolerating clears, advancing to fulls, no nausea or bloating. I agree with this plan. Subjective Patient feeling well this AM. Pain tolerable, no nausea/vomiting. Hungry for more. + flatus/BM yesterday, nothing yet this AM but feels good. No CP/SOB/dizziness. + voiding and ambulating. Physical Exam Physical Exam: awake/alert, no distress Gastrointestinal (Abdomen): Inspection/Auscultation: + abdominal surgical incision (c/d/i with midline norma, no signs of infection) Results & Data Vital Signs (Past 12 Hours) Vital Signs Temp Pulse Resp BP Pulse Ox O2 Del Method 07/30/24 07:35 98.1 F 65 18 132/72 95 Room Air PG Care Time/CCT Total # of Minutes Spent Total Time Spent with Patient: Total time spent is greater than 50% in coordination of care (as documented) at patient's floor/unit and/or counseling patient: Coding Level of Care Code 25786 SUB INP/OBS CARE 07/05MIN Diagnoses Cecal volvulus K56.2
[2024-07-31 06:41] LABS: Basophils # (auto) 0.01 K/uL (0.00-0.20); Basophils % (auto) 0.2 %; Eosinophils # (auto) 0.16 K/uL (0.00-0.50); Eosinophils % (auto) 3.4 %; Hematocrit (blood only) 35.6 % (42.0-52.0); Hemoglobin 12.1 g/dl (14.0-18.0); Immature Granulocytes # (auto) 0.01 K/uL (0.01-0.20); Immature Granulocytes % (auto) 0.2 %; Lymphocytes # (auto) 1.31 K/uL (1.20-3.40); Lymphocytes % (auto) 27.6 %; Mean Corpuscular Volume 91.3 fL (80.0-100.0); Mean Platelet Volume 10.5 fL (9.4-12.4); Monocytes # (auto) 0.66 K/uL (0.11-0.59); Monocytes % (auto) 13.9 %; Neutrophils % (auto) 54.7 %; Platelet Count 227 K/uL (130-400); RDW Coefficient of Variation 12.5 % (11.5-14.5); RDW Standard Deviation 42.1 fL (36.4-46.3); White Blood Count 4.75 K/ul (4.8-10.8)
[2024-07-31 07:03] LABS: BUN Creatinine Ratio 11.6 (10-20); Calcium 9.7 mg/dl (8.6-10.3); Creatinine Clr Calc Pharmacy 66.4 ml/min; Potassium 3.8 mmol/L (3.5-5.1)
[2024-07-31 07:16] VITALS: BP 138/84; PULSE 57; RESP 16; TEMP 98.1; O2SAT 96
--- NOTE | 2024-07-31 08:07 | Surgery Progress Note ---
<Statement entered by Jason Gardiner, - 07/31/24 22:05> I have seen and examined this patient this am. He has continued to tolerate advancement of his diet and had a normal BM today. He feels well enough and ready to go home. Discharge with outpatient follow up to his surgeon, Dr. Nuñez in the office in 1-2 weeks. Date of Service July 31, 2024 Assessment & Plan (1) Cecal volvulus: Plan: POD#4 from right hemicolectomy with Dr. Nuñez Afebrile ,VSS, Had some blood from rectum 07/29/24 denies a BM since surgery, mild belching Hbg stable at 12 DVT prophylaxis restarted this AM started low fiber yesterday tolerating with n/v surgical dressing removed norma c/d/i no infection, may leave open to air or cover for comfort pt wearing an abdominal binder states he likes it however is too small, please give him a size up, order placed Ambulate and IS Admission and Anticipated Discharge Date Admission Date: July 27, 2024 Subjective denies n/v, f/c, abd pain Review of Systems Constitutional: no fever and no chills Respiratory: no dyspnea Cardiovascular: no chest pain Gastrointestinal: + belching; no abdominal pain, no nausea and no vomiting Genitourinary: no dysuria Integumentary: no rash Physical Exam Constitutional: well developed, cooperative and comfortable; no acute distress Respiratory: normal respiratory effort and able to speak in complete sentences; no respiratory distress Cardiovascular: Rate/Rhythm: + bradycardic (57) Gastrointestinal (Abdomen): Inspection/Auscultation: + abdominal surgical incision (cdi norma ); abdomen not distended Percussion/Palpation: abdomen soft Psychiatric: A+Ox3, euthymic affect Results & Data Vital Signs (Past 12 Hours) Vital Signs Temp Pulse Resp BP Pulse Ox O2 Del Method 07/31/24 07:15 98.1 F 57 L 16 138/84 96 Room Air 07/30/24 23:21 98.6 F 66 18 132/85 97 Room Air Results CBC w Diff Results: RBC 3.90 M/uL (4.70-6.10) L 07/31/24 WBC 4.75 K/ul (4.8-10.8) L 07/31/24 Hgb 12.1 g/dl (14.0-18.0) L 07/31/24 Hct 35.6 % (42.0-52.0) L 07/31/24 MCV 91.3 fL (80.0-100.0) 07/31/24 MCH 31.0 pg (25.0-34.0) 07/31/24 MCHC 34.0 g/dL (32.0-36.0) 07/31/24 RDW Standard Deviation 42.1 fL (36.4-46.3) 07/31/24 RDW Coefficient of Variation 12.5 % (11.5-14.5) 07/31/24 Plt Count 227 K/uL (130-400) 07/31/24 MPV 10.5 fL (9.4-12.4) 07/31/24 Neutrophils (%) (Auto) 54.7 % 07/31/24 Lymphocytes (%) (Auto) 27.6 % 07/31/24 Monocytes # (Auto) 0.66 K/uL (0.11-0.59) H 07/31/24 Eosinophils # (Auto) 0.16 K/uL (0.00-0.50) 07/31/24 Immature Granulocyte % (Auto) 0.2 % 07/31/24 Neutrophils # (Auto) 2.60 K/uL (1.40-6.50) 07/31/24 Lymphocytes # (Auto) 1.31 K/uL (1.20-3.40) 07/31/24 Monocytes # (Auto) 0.66 K/uL (0.11-0.59) H 07/31/24 Eosinophils # (Auto) 0.16 K/uL (0.00-0.50) 07/31/24 Basophils # (Auto) 0.01 K/uL (0.00-0.20) 07/31/24 Immature Granulocyte # (Auto) 0.01 K/uL (0.01-0.20) 5 PG Care Time/CCT Total # of Minutes Spent Total Time Spent with Patient: Total time spent is greater than 50% in coordination of care (as documented) at patient's floor/unit and/or counseling patient: Coding Level of Care Code 67069 SUB INP/OBS CARE 07/05MIN Diagnoses Cecal volvulus K56.2
--- NOTE | 2024-08-04 09:31 | Discharge Summary ---
Date of Service August 04, 2024 Admission HPI Per Admitting Provider 49-year-old gentleman presents with a 3-day history of severe pain in his abdomen. He has been constipated. He denies fevers and chills. He has had some nausea. He denies other complaints. He has never had surgery in the past on his abdomen. 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 Discharge Data Allergies Allergy/AdvReac Type Severity Reaction Status Date / Time No Known Drug Allergies Allergy Verified 11/29/23 10:12 Consultations 07/27/24 10:39 Consult General Surgery Stat Procedures Performed Operation Date: 07/27/24 11:00 Actual Procedures p Exploratory Laparotomy, Right Hemicolectomy, Appendectomy(Not Applicable) - Irving Nñuez MD s Appendectomy(Not Applicable) - Irving Nuñez MD Ordered Studies 07/27/24 08:17 CT abd pelvis IV con only Stat Hospital Course (1) Cecal volvulus: Plan Patient was taken to operating room from emergency department for exploratory laparotomy by Dr. Nuñez on 07/27/2024 . 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 Patient was taken to recovery room then to medical/surgical floor for postoperative care. Diet advanced to clear liquids, pain management as needed and antiemetics as needed. POD # 1, avss, postop pain moderate and not well controlled. pain management was adjusted with IV Toradol and oral Percocet. POD # 2 avss, had bloody bowel movement but hemodynamically stable. Tolerating clear liquids. Lovenox and Toradol held. POD # 3, pain controlled, diet advanced, having return of bowel function and hemoglobin stable. Patient was discharged home on POD # 4 in stable condition. Total Time Total Time Spent Total Time Spent (In Minutes): 20 Discharge Plan Discharge Items Patient Disposition: Home - Self-Care Reason For Visit: POSTOP EXPLORATORY LAPAROTOMY FOR CECAL VOLVULUS Discharge Diagnosis: exploratory laparotomy and right hemicolectomy Activity: Per Instructions section Lifting: No more than 10 pounds Bathing Comment: may shower; no soaking in tubs/pools x 2 weeks Exercise/Sports: Wait until after follow-up appointment Driving/Machine Use: no driving while taking narcotics for pain Non-emergency contact: Surgeon Call non-emergency contact if: you have any medication questions, your symptoms worsen, your pain is not controlled, your pain is worsening, you have a fever, your temperature is above 101.5, your wound has increased redness, your wound has increased drainage and your wound pain has increased Follow-up/Referrals: Irving Nuñez MD [Physician] - (please call to schedule follow up in clinic within 2 weeks) Dennis Nuñez, [Primary Care Provider] - Diet: Low Fiber Addtl Attending Provider Instructions: SPECIAL CARE INSTRUCTIONS: * You have norma in place in your incision that will come out in the office around 14 days post op. You may cover the incision with dry gauze/abd/tape if you wish for comfort and change daily.. if there is no drainage from the incision you may also keep it open to air You may continue to wear your abdominal binder if you wish for comfort * You may shower. NO soaking in pools or baths for 2 weeks * No lifting greater than 10lbs. No strenuous exercise until cleared by surgeon. Light walking is accepted. * No driving while taking narcotic pain medication; wait at least 3 days * No drinking alcohol while taking narcotic pain medication * May use Ibuprofen/Tylenol over the counter for pain as tolerated. Do not exceed 3grams of Tylenol per 24 hours * Expect some swelling and bruising. * Diet- you may resume a low fiber diet Call your doctor if: * Temperature above 101 degrees, nausea/vomiting, fever/chills * Pain not relieved by pain medicine ordered * There is increased drainage or redness from any incision * You have any unanswered questions or concerns [phone]. FOLLOW UP VISIT: If not already scheduled, please call the office for a follow-up visit. Office Pending Studies at Discharge: Yes Studies:: surgical pathology Stand-Alone Forms: My [employer], Smoking Cessation Medications and DC Order Prescriptions: New oxycodone 5 mg tablet 5 - 10 mg PO .[id number] PRN (Reason: pain, for initial therapy, max 6 tabs per day) Qty: 15 0RF Continued omeprazole 20 mg capsule,delayed release(DR/EC) 20 mg PO DAILY Qty: 90 2RF Rx Instructions: 1 cap po 30min prior to first meal Fish Oil 300-500 mg capsule PO creatine monohydrate Powder PO multivitamin Tablet 1 tab PO QAM Discharge Orders: Discharge Order (Routine); Ordered 07/31/24 Ordered By: Ines Capellan/Other Patient Handouts: Low-Fiber Diet, Incision Care Admission Data Admit Date/Time: 07/27/24 13:19 Attending Provider: Irving Nuñez Admit Provider: Irving Nuñez Primary Care Provider: Dennis Nuñez Other Providers: Jason Gardiner Other Interventions: Discharge Summary Assessment (RN) Last Done: 07/31/24 09:50
== END 2024-07-31 10:50 | disposition home or self-care (01) | DRG 331 ==
LOC: ED 08:05 → 3E 11:24